=== PATIENT | female | born 1940 | race Caucasian/White ===

== ENCOUNTER 2021-03-19 06:00 | Day surgery (SDC) | payer OTHER | END 2021-03-19 10:40 | disposition home or self-care (01) | LOC: AMB-ENDOS 06:00 | PROVIDERS: ATTEND Surgery | DX: D13.1 Benign neoplasm of stomach (principal); D13.2 Benign neoplasm of duodenum; Z20.822 Contact with and (suspected) exposure to COVID-19 ==